=== PATIENT | male | born 1970 | race African-American/Black ===

== ENCOUNTER 2016-10-09 07:34 | Emergency (ER) | payer OTHER ==
[~2016-10-09] VITALS: Ht 180.3 cm; Wt 74.8 kg
--- NOTE | ~2016-10-09 | CT4 ---
[facility] A Service [facility] RADIOLOGY TEXT RESULTS PATIENT: FANNIE WIGGINS JR LOCATION: [facility] : [id number] UNIT #: [id number] AGE: [address]: Aden Beltran MD SEX: M ORDER DR: [id number] [facility]. [place], [place] [address] [id number] MR#: [id number] Acc #: [id number] NAME: FANNIE WIGGINS : 1970 SEX: M STUDY DATE/TIME: 10/09/2016 9:02 UNIT: [facility] ROOM: STUDY DESCRIPTION: CT Abd and Pelv Wo Cont Attending Physician: Aden Beltran M.D. Ordering Physician: [facility] MEDICAL IMAGING REPORT This report is preliminary unless electronic signature is present EXAM CT abdomen and pelvis INDICATIONS Diffuse abdominal pain and body aches. Diaphoresis [address] abdomen and pelvis without contrast. Coronal and sagittal reconstructions were obtained. This CT exam was performed with one or more of the following radiation dose reduction techniques: automatic exposure control, adjustment of mA and/or kV according to patient size, and iterative reconstruction. COMPARISON CT abdomen and pelvis 09/06/2014. FINDINGS ABDOMEN: No urinary calculi. No hydronephrosis. Noncontrast evaluation of the remaining solid abdominal organs is within normal limits. The gallbladder is not distended. The bowel is not dilated. There are occasional colonic diverticula. No enlarged retroperitoneal or mesenteric lymph nodes. The appendix is normal. PELVIS: Mild wall thickening of urinary bladder is noted. This may relate to a lack of distension, I would recommend correlation with urinalysis. No enlarged pelvic or inguinal lymph nodes. No acute osseous abnormalities. IMPRESSION [facility] A Service of [facility] RADIOLOGY TEXT RESULTS PATIENT: FANNIE WIGGINS JR LOCATION: [facility] : [id number] UNIT #: [id number] AGE: [address]: Aden Beltran MD SEX: M ORDER DR: 1. Mild wall thickening of the urinary bladder. This may relate to a lack of distension, however I would recommend correlation with urinalysis to identify cystitis. 2. Diverticulosis without diverticulitis. Dictated by... Vadim Morgan M.D. THIS IS AN ELECTRONICALLY VERIFIED REPORT Vadim Morgan M.D. at 10/09/2016 2:16 PM CLEMENTE/gretchen TD: 10/09/2016 10:43 JOB #: [id number] MEDICAL IMAGING REPORT Page 1 of 1 COPY
[~2016-10-09 07:34] MED LIST: BENTYL20 MG DOB; BENTYL20 MG PO; IMODIUM A-D2 M1 PO; PEPCID AC20 M1 PO; PHENERGAN25 M1 PO; ZOFRAN ODT4 MG DOB
[2016-10-09 08:15] LABS: BASOPHIL# 0.1 X10e3 (0-0.3); BASOPHIL% 0.6 % (0-2.5); DIFF IND NO; EOSINOPHIL# 0.4 X10e3 (0-0.7); EOSINOPHIL% 3.2 % (0.0-7.0); HEMATOCRIT 45.4 % (38.0-50.0); HEMOGLOBIN 15.6 gm/dL (13.0-16.0); LYMPHOCYTE# 3.9 X10e3 (1.0-3.5); LYMPHOCYTE% 28.4 % (17.0-45.0); MEAN CELL VOLUME 98.6 FL (83-96); MEAN CORPUSCULAR HEMOGLOBIN 33.8 PG (28-34); MEAN CORPUSCULAR HGB CONC 34.3 g/dL (30-36); MEAN PLATELET VOLUME 8.3 FL (6.5-11.5); MONOCYTE# 1.6 X10e3 (0-1.0); MONOCYTE% 11.3 % (3.0-12.0); NEUTROPHIL# 7.8 X10e3 (1.5-7.1); NEUTROPHIL% 56.5 % (40-75); PLATELET COUNT 245 X10e3 (140-420); RED BLOOD COUNT 4.61 X10e (3.90-5.60); RED CELL DISTRIBUTION WIDTH 13.9 % (11.0-15.5); WHITE BLOOD COUNT 13.8 X10e3 (4.0-10.5)
[2016-10-09 09:03] LABS: ALBUMIN SERUM 4.4 g/dL (3.5-5.0); BILIRUBIN, DIRECT 0.1 mg/dL (0.0-0.2); BILIRUBIN,INDIRECT 0.5 mg/dL (0.0-0.9); BILIRUBIN,TOTAL 0.6 mg/dL (0.2-2.0); BUN/CREATININE RATIO 13.33; CALCIUM SERUM 8.9 mg/dL (8.4-10.2); CREATININE SERUM 1.2 mg/dL (0.6-1.4); GLOM FILT RATE Estimated 84.8 mL/min (>60); POTASSIUM 3.3 mmol/L (3.5-5.1); PROTEIN TOTAL SERUM 7.6 g/dL (6.0-8.3)
[2016-10-09 09:04] LABS: URINE SOURCE CLEAN CATCH
[2016-10-09 09:14] LABS: URINE APPEARANCE CLEAR; URINE BLOOD NEG (NEG); URINE COLOR DK YELLOW; URINE GLUCOSE 250 MG/DL (NEG); URINE KETONE TRACE (NEG); URINE LEUKOCYTE ESTERASE NEG (NEG); URINE NITRATE NEG (NEG); URINE PROTEIN TRACE (NEG); URINE SPECIFIC GRAVITY 1.036 (1.003-1.035)
[2016-10-09 09:29] LABS: URINE BILIRUBIN NEG (NEG)
[2016-10-09 09:30] LABS: CULTURE INDICATED? NO
== END 2016-10-09 12:40 | disposition home or self-care (01) ==
LOC: CED 07:34
PROVIDERS: Emergency Medicine
DX: R10.9 Unspecified abdominal pain (principal); R11.2 Nausea with vomiting, unspecified; I10 Essential (primary) hypertension; Z88.8 Allergy status to other drugs, medicaments and biological substances
CPT/HCPCS: 36415; 74176; 80048; 80076; 81003; 82150; 83605; 83690; 85025; 87040; 96374; 96375; 99284; J2270; J2405